=== PATIENT | male | born 1975 | race Caucasian/White ===

== ENCOUNTER 2019-12-17 09:49 | Emergency (ER) | payer OTHER, SELFPAY ==
[2019-12-17 09:49] VITALS: BP 155/60; PULSE 69; RESP 18; TEMP 36.2; O2SAT 99; BMI 25.7
--- NOTE | 2019-12-17 10:28 | ED.DEP ---
ED Disposition - Plan for ED Patient: Instructions: ED Spasm Back No Trauma Prescriptions: cycloBENZAPRine HCl [Flexeril] 10 mg PO TID PRN #20 tab PRN Reason: Muscle Spasm Transmission Status: Pending to [facility] Naproxen [Naprosyn] 500 mg PO BID PRN #20 tab Transmission Status: Pending to [facility] Oxycodone HCl/Acetaminophen [Percocet 5/325] 1 tab PO Q6H PRN PRN 3 Days #12 tab PRN Reason: Pain Transmission Status: Pending to [facility] Referrals: Lebron Briggs DO [NON CLINICAL AFFILIATE] - Dick Foster DO [STAFF PHYSICIAN] -
--- NOTE | 2019-12-17 10:37 | ED.DCSUM_ITS ---
- ER Visit Summary Date of Service: 12/17/19 Chief Complaint: Back pain History of Present Illness: The patient is a 44 M presenting with back pain. He states this started 2 days ago. He has history of previous back spasms in the past and states this feels similar. Denies trauma. He got a massage yesterday which initially improved but then he leaned over a sink and started having more pain. He tried Percocet at home. He denies bowel or bladder incontinence. Pain occasionally radiates to both legs. He is able to ambulate with pain. He denies fever. Denies weakness. Denies other complaints. Physical Examination: Vitals are stable. Patient is afebrile. Alert no acute distress. HEENT exam is unremarkable. Neck is supple. Lungs are clear and equal bilaterally. Heart is regular rate and rhythm. Abdomen is soft nontender nondistended. Back: Right paraspinal lumbar muscle tenderness, no midline tenderness. Straight leg raise positive at 30 degrees on the right Extremities are unremarkable. Skin is warm and dry. No focal neurologic deficit. Normal strength and sensation Remainder of exam is unremarkable. Emergency Department Course and Treatment: Patient drove himself to the ED. He declined IM Toradol. He is given prescription for Flexeril and Naprosyn. Advised to follow-up with primary care physician. Advised return the ED for worsening complaints. Disposition: Discharge home Impression: Lumbar strain This note was generated with [employer] dictation software. It may contain incorrect words, spelling, and punctuation that were not noted in review of the chart prior to signing ED Disposition - Plan for ED Patient: Instructions: ED Spasm Back No Trauma Prescriptions: cycloBENZAPRine HCl [Flexeril] 10 mg PO TID PRN #20 tab PRN Reason: Muscle Spasm Prescription Printed Naproxen [Naprosyn] 500 mg PO BID PRN #20 tab Prescription Printed Oxycodone HCl/Acetaminophen [Percocet 5/325] 1 tab PO Q6H PRN PRN 3 Days #12 tab PRN Reason: Pain Prescription Printed Referrals: Dick Foster DO [STAFF PHYSICIAN] - Lebron Briggs DO [NON CLINICAL AFFILIATE] -
== END 2019-12-17 10:52 | disposition home or self-care (01) ==
LOC: ED 10:48
PROVIDERS: Emergency Provider Emergency Medicine
DX: S39.012A Strain of muscle, fascia and tendon of lower back, initial encounter (principal); M62.830 Muscle spasm of back; Z72.0 Tobacco use; X58.XXXA Exposure to other specified factors, initial encounter; Y93.89 Activity, other specified; Y92.89 Other specified places as the place of occurrence of the external cause; Y99.8 Other external cause status
CPT/HCPCS: 99282